=== PATIENT | male | born 1990 | race Caucasian/White ===

== ENCOUNTER 2022-05-17 22:10 | Observation (INO) ==
[2022-05-18] MEDS ORDERED: *HR* Metoprolol 5 MG/5 ML VIAL IVP PRN (00:13)
[2022-05-18] MEDS: *HR* Heparin 5,000 UNIT/ML VIAL SQ SCH ×4 (00:43→21:49)
[2022-05-18] MEDS: 0.9 % Sodium Chloride 1,000 ML IVC SCH ×5 (01:08→13:54)
[2022-05-18] MEDS ORDERED: Ondansetron 4 MG/2 ML VIAL IVP PRN ×2 (02:13→12:53)
[2022-05-18] MEDS: Acetaminophen IV 1,000 MG/100 ML BAG IVPB SCH ×2 (05:47→12:45)
[2022-05-18] MEDS ORDERED: Piperacillin/Tazobactam 3.375 GM in 0.9 % Sodium Chloride Mini Bag 100 ML IVPB SCH (06:00)
[2022-05-18] MEDS ORDERED: Ondansetron 4 MG/2 ML VIAL IVP SCH (06:00)
[2022-05-18] MEDS ORDERED: *HR* HYDROmorphone PF 0.5 MG/0.5 ML SYRINGE IVP PRN (07:47)
[2022-05-18] MEDS ORDERED: *HR* FentaNYL (PF) 100 MCG/2 ML VIAL IVP PRN (07:47)
[2022-05-18] MEDS ORDERED: Lidocaine HCL 4 ML Topical Solution (Laryng-O-Jet Kit Sterile Pak) TP ONE (08:46)
[2022-05-18] MEDS ORDERED: *HR* Rocuronium Bromide 50 MG/5 ML VIAL ONE (08:49)
[2022-05-18] MEDS ORDERED: *HR* Succinylcholine 200 MG/10 ML VIAL IVP ONE (08:49)
[2022-05-18] MEDS ORDERED: Lidocaine -MPF 2% 5 ML VIAL ONE (08:49)
[2022-05-18] MEDS ORDERED: *HR* FentaNYL (PF) 100 MCG/2 ML VIAL ONE (08:49)
[2022-05-18] MEDS ORDERED: *HR* Midazolam HCl 2 MG/2 ML VIAL ONE (08:49)
[2022-05-18] MEDS ORDERED: *HR* Propofol 200 MG/20 ML VIAL IVP ONE (08:49)
[2022-05-18] MEDS ORDERED: *HR* HYDROMORPHONE 2 MG/ML VIAL ONE (10:46)
[2022-05-18] MEDS ORDERED: Ondansetron 4 MG/2 ML VIAL ONE (10:50)
[2022-05-18] MEDS ORDERED: Sugammadex Sodium 200 MG/2 ML VIAL IV ONE (11:07)
[2022-05-19] MEDS: *HR* Heparin 5,000 UNIT/ML VIAL SQ SCH (05:55)
[2022-05-19] MEDS: 0.9 % Sodium Chloride 1,000 ML IVC SCH (09:15)
[2022-05-19 11:52] VITALS: BP 132/79; PULSE 78; TEMP 98.5; O2SAT 95
== END 2022-05-19 14:15 | disposition home or self-care (01) ==
LOC: 3ANU
PROVIDERS: ADMIT Surgery; ATTEND Surgery